=== PATIENT | male | born 1940 | race Caucasian/White ===

== ENCOUNTER 2017-05-30 15:14 | Inpatient (IN) | payer MEDICARE ==
[~2017-05-30] VITALS: Ht 188 cm; Wt 76.3 kg
[2017-05-30] VITALS (12 sets, daily range): BP systolic 98–128; BP diastolic 60–79
[~2017-05-30 15:14] MED LIST: AEROCHAMBER1 DEV IH; ALBUTEROL200 PUFFS/ IH; AZITHROMYCIN250 MG PO; CARVEDILOL6.25 MG PO; COREG3.125 MG PO; GABAPENTIN 600600 MG PO; GLIMEPIRIDE 2MG2 MG PO; KOMBIGLYZE XR 11 TER PO; LASIX40 MG PO; LISINOPRIL 10MG10 MG NG; METFORMIN 500M500 M1 PO; OMNICEF 300 MG300 MG PO; POTASSIUM CHLO10 ME3 PO; Zithromax500 MG PO
[2017-05-30] MEDS ORDERED: GLIMEPIRIDE1 MG PO (15:36)
[2017-05-30] MEDS ORDERED: ASPIRIN 81MG TA81 MG PO (15:37)
[2017-05-30 15:41] LABS: LYMPH # 1.6 K/mm3 (0.7-4.5); LYMPH % 15.3 % (10-50)
--- NOTE | 2017-05-30 15:41 | Emergency Room Report ---
History of Present Illness Time Seen by MD Colon Presenting Problem in Triage Pt arrived:Walked Presenting Problem:PT STATES HE IS HAVING RECTAL BLEEDING FOR 3 DAYS AND IT IS BLACK IN COLOR. 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 N Clinical Suspician of Infection? N Mental Status: 1 - Regular (Normal Baseline) Sepsis Risk:Low Sepsis Risk Have you (or family members/close friends) recently traveled outside the [place]? N If Yes, where/when: Have you had exposure to infectious disease within the past month? TB? Other? Specify: Comment The patient complains of black stool for 3 days. He says that about 4 or 5 days ago his 10 pound dog jumped off of the back of a chair onto his abdomen and he had some pain in his LEFT lower quadrant associated with that. He does not really have pain now. No vomiting of blood. No vomiting. No fever. No history of bowel problems or gastrointestinal bleeding. His only blood thinner is aspirin. He only drinks alcohol occasionally. ALLERGIES Coded Allergies: No Known Allergies (05/30/17) Home Medications Active Scripts Furosemide (Lasix) 40 MG PO DAILY #30 TAB Prov: 08/25/12 Reported Medications Glimepiride 1 MG PO DAILY #90 ASPIRIN (Aspirin) 81 MG PO DAILY Metformin HCl (Metformin) 500 MG PO BID Carvedilol (Carvedilol 6.25MG) 6.25 MG PO BID Gabapentin (Gabapentin 600MG) 600 MG PO BID History Medical History General CAD? No Angina: Yes OR: No Hypertension? Yes Hyperlipidemia? No CHF? No DVT? No PE? No COPD? No Asthma? No Anemia? No GERD? No Gastric ulcers? No GI Bleed? No Hernia? No Thyroid Problems? No Hypothyroidism? No CVA? No Seizures? No Diabetes? Yes Insulin Dependent: No Insulin Pump: No Home FSBS? No Renal Insuffiency? No End Stage Renal Disease? No UTI? No Stones? No BPH? No GB Disease: No Nephritic Syndrome? No Asplenia? No Hepatitis? No Sickle Cell Disease? No Arthritis? No Migraines? No Cataracts? No Glaucoma? No MRSA? No HIV? No TB? No Anxiety? No Depression? No Cancer? No More? No Immunization Hx DT/Tetanus 11/10/14 Flu 2015-FSN Pneumonia REFUSES Surgical Hx Previous Surgery?Y LEFT KNEE Family History Family Hx Diabetes Yes CAD No Hypertension No Hyperlipidemia No Cancer No TB No Social History Smoking Hx Smoker: Current Every Day Smoker Tobacco: No Type Cigarettes Alcohol Alcohol: Yes Review of Systems All Other Systems Reviewed and Negative Constitutional denies fever Respiratory denies shortness of breath Cardiovascular denies chest pain Gastrointestinal see HPI Physical Exam Vital Signs Vital Signs Date Time Temp Pulse Resp B/P Pulse O2 O2 Flow FiO2 Ox Delivery Rate 05/30 1528 98.1 95 18 128/79 98 General Appearance no apparent distress, mildly pale Eye Exam - bilateral eye normal exam, bilateral eye PERRL, bilateral eye EOMI Ear, Nose, Throat hearing grossly normal, normal ENT inspection Neck normal inspection, non-tender, supple, full range of motion Respiratory Status Yes: trachea midline, chest symmetrical, non tender chest. No: respiratory distress. Lung Sounds bilateral: normal breath sounds, lungs clear. Cardiovascular normal exam, regular rate/rhythm, no peripheral edema, no gallop, no JVD, no murmur, no rub, normal peripheral pulses Gastrointestinal normal bowel sounds, normal exam, non tender, soft, no organomegaly Extremities non-tender, normal range of motion, normal inspection Neurologic alert, normal exam, oriented x 3 Mental status normal mood/affect Skin intact, normal color, warm/dry Medical Decision Making LABS/Meds/Orders Pt receiving controlled substance in ED? No Results/Orders Laboratory Tests 05/30/17 1620: Stool Occult Blood POSITIVE 05/30/17 1525: Sodium 136, Potassium 5.1, Chloride 101, Carbon Dioxide 24, BUN 72 H, Creatinine 2.4 H, Estimated Creat Clear 30 L, Estimated GFR (MDRD) 27, Glucose 202 H, Calcium 8.6, Total Bilirubin 0.3, AST 13 L, ALT 16, Alkaline Phosphatase 63, Creatine Kinase 64, CK-MB (CK-2) Rel Index 2.0, CK and CKMB Interp 1.3, Troponin I 0.02, Total Protein 6.4, Albumin 3.6, Globulin 2.8, Albumin/Globulin Ratio 1.3, WBC 10.4, RBC 2.86 L, Hgb 9.3 L, Hct 27.6 L, MCV 96.3, RDW 12.5, Plt Count 208, MPV 10.3, Gran % 81.8 H, Gran # 8.5 H, Lymphocytes % 15.3, Monocytes % 2.3, Eosinophils % 0.3, Basophils % 0.1, Lymphocytes # 1.6, Monocytes # 0.2, Eosinophils # 0.0, Basophils # 0.0, PUBS MCHC 34.0, MCH 32.7 H Current Medication Orders Sig/Makeda Start time Last Medication Dose Route Stop Time Status Admin Pantoprazole Sodium 80 MG .Q10H 05/30 1758 AC Sodium Chloride 100 ML IV 06/02 175 Pantoprazole Sodium 80 MG ONCE ONE 05/30 1700 DC 05/30 Sodium Chloride 100 ML IV 05/30 175 1848 Sodium Chloride 10 ML PRN PRN 05/30 1545 AC IV 05/31 1534 Orders Procedure Date/time Status CT ABD/PELVIS REQ 05/30 1535 Complete IV SALINE LOCK 05/30 1535 Active STOOL OCCULT BLOOD 05/30 1535 Complete CBC WITH AUTO DIFF 05/30 1535 Complete CARDIAC ENZYMES 05/30 1535 Complete CHEM 12 PROFILE 05/30 1535 Complete Progress - 5:45 PM: I have discussed the case with Dr. Mehta for Dr. Zelaya who agrees to admit the patient to the hospital. We discussed the patient's clinical information, including history, exam, laboratory and radiology results and ED course. Per hospital procedure, I will write temporary bridge inpatient orders on the patient. Specific orders requested by the admitting physician: Protonix drip, surgical consult, serial H and H 4 hours overnight 5:50 PM: Discussed with Dr. Argueta. He may have clear liquids, nothing by mouth after midnight. Type and crossmatch for 2 units but do not transfuse at this time. Admit to stepdown. Departure Departure Disposition Still a Patient Clinical Impression Primary Impression: Upper gastrointestinal bleed Secondary Impressions: Blood loss anemia Condition STABLE Referrals Jacky Zelaya MD (Family) ED Critical Care Critical Care Yes Time spent 30-74 min Vital system(s) involved: UGI bleed, anemia I was present at bedside for Coordinating pt's care, During my initial exam, Reviewing lab results, Reviewing old records, Discussing pt condition at 2013
--- OUTSIDE RECORDS SUMMARY | 2017-05-30 15:41 | External Medical Summary Rpt ---
Author Author JAMSHID Trinidad, ROSIEPATO [employer] Organization [employer] Address Unknown Phone Unavailable Results Basic metabolic panel in Blood Observa Value Referen Units Interpr Notes Date tion ce etation Range Urea 7 - 18 mg/dL High No Sep 14 nitrogen informati 2017 [Mass/vol on in 11:11 AM ume] in source Serum or data Plasma Calcium 8.5 - mg/dL Normal No Sep 14 [Mass/vol 10.1 informati 2017 ume] in on in 11:11 AM Serum or source Plasma data Chloride 98 - 107 mmoL/L Normal No Sep 14 [Moles/vo informati 2017 lume] in on in 11:11 AM Serum or source Plasma data Carbon 21.0 - mmoL/L Normal No Sep 14 dioxide, 32.0 informati 2017 total on in 11:11 AM [Moles/vo source lume] in data Serum or Plasma Creatinin 0.70 - mg/dL High No Sep 14 e 1.30 informati 2017 [Mass/vol on in 11:11 AM ume] in source Serum or data Plasma Estimated >60 ML/MIN No REFERENCE Sep 14 informati RANGE: 2017 glomerula on in >60 11:11 AM r source ML/MIN/1. filtratio data 73 SQUARE n rate METERSIf (GF this patient is -A merican, then multiply theresult by 1.210. Glucose 74 - 106 mg/dL High No Sep 14 [Mass/vol informati 2017 ume] in on in 11:11 AM Serum or source Plasma data Potassium 3.5 - 5.1 mmoL/L High No Sep 14 informati 2017 [Moles/vo on in 11:11 AM lume] in source Serum or data Plasma Sodium 136 - 145 mmoL/L Normal No Sep 14 [Moles/vo informati 2017 lume] in on in 11:11 AM Serum or source Plasma data
--- OUTSIDE RECORDS SUMMARY | 2017-05-30 15:41 | External Medical Summary Rpt | CCD ---
Author Author [employer] Organization [employer] Address Unknown Phone Unavailable Purpose Continuity of Care Document - through 2016
--- OUTSIDE RECORDS SUMMARY | 2017-05-30 15:41 | External Medical Summary Rpt | CCD ---
Demographics Preferred Language Bahamian Marital Status Unknown Confucianism Affiliation Unknown Race Unknown Ethnic Group Unknown Author Author , FINESSE BREEN Address Unknown Phone Immunization No patient found.
--- OUTSIDE RECORDS SUMMARY | 2017-05-30 15:41 | External Medical Summary Rpt | CCD ---
Demographics Preferred Language Liberian Marital Status Unknown Tenriism Affiliation Unknown Race Unknown Ethnic Group Unknown Author Author , FINESSE BREEN Address Unknown Phone Immunization No patient found.
--- OUTSIDE RECORDS SUMMARY | 2017-05-30 15:41 | External Medical Summary Rpt | CCD ---
Author Author , JAMSHID BREEN Address Unknown Phone [email or web address] Care Team Providers Care Sales Special Agent Name Role Phone Jacky Zelaya, Jacky Unavailable Unavailable Nathalie PITTS, Unavailable Unavailable RITA PITTS Purpose Continuity of Care Document - 08-21-2012 through 2016 Problems Code Diagnosis DOS Provider Status 401.9 Essential [facility] [id number] Congestive [facility] [id number] Diabetes [facility] Pneumonia [facility] [id number] Active [facility] [id number] Chronic [facility] M54.5 LOW BACK PAIN T14.90 INJURY, UNSPECIFIED Allergies, Adverse Reactions, Alerts Type Allergy to substance Adverse Reaction to Substance Substance Reaction Severity INGREDIENT: NO KNOWN Unknown Unknown - NO KNOWN DRUG ALLERGY Medications Na ND Rx Da Fi Fi Am Da Di Ph RX Ph St me C No te ll ll ou ys ag ar # ys at rm s nt no ma ic us Or Da si cy ia de te s n re d AZ 59 02 0 No IT 76 -0 HR 23 2- Lo OM 06 20 ng YC 00 13 er IN 3 Ac 25 ti 0 ve MG TA BL ET FU 51 02 1 No RO 07 -0 SE 90 1- Lo NC 07 20 ng DE 32 13 er 0 40 Ac ti MG ve TA BL ET GE 00 01 2 No NT 40 -3 AM 91 1- Lo IC 20 20 ng IN 70 13 er 3 80 Ac ti MG ve /2 ML AL SO 00 01 2 No DI 40 -3 UM 97 1- Lo 98 20 ng CH 43 13 er LO 7 RI Ac DE ti ve 0. 9% SO ERICKSON TI ON CA 51 01 2 No RV 07 -3 ED 90 1- Lo IL 77 20 ng OL 12 13 er 0 3. Ac 12 ti 5 ve MG TA BL ET FU 00 01 0 No RO 40 -3 SE 96 1- Lo NC 10 20 ng DE 20 13 er 4 40 Ac ti MG ve /4 ML AL RI 00 01 2 No OM 64 -3 ET 11 1- Lo MEHTA 49 20 ng ZI 53 13 er NE 5 Ac 25 ti ve MG /M L AM PU L As 00 01 2 No pi 18 -3 ri 28 1- Lo n 21 20 ng 81 78 13 er MG 9 Ac EC ti ve Ta bl et Fu 00 01 0 No ro 17 -3 se 22 1- Lo mi 90 20 ng de 81 13 er 0 20 Ac MG ti ve Ta bl et XO 63 01 3 No PE 40 -3 NE 20 0- Lo X 51 20 ng 1. 32 13 er 25 4 Ac MG ti /3 ve ML SO ERICKSON TI ON ME 00 01 0 No TO 40 -3 RI 92 0- Lo OL 28 20 ng OL 50 13 er 5 TA Ac RT ti 5 ve MG /5 ML AM P GL 51 01 3 No IM 07 -3 EP 90 0- Lo IR 42 20 ng ID 52 13 er E 0 2 Ac MG ti ve TA BL ET LO 00 01 3 No VE 07 -3 NO 50 0- Lo X 62 20 ng 40 04 13 er 1 MG Ac /0 ti .4 ve ML SY RI NG E IS 00 01 0 No OV 27 -3 UE 01 0- Lo -3 31 20 ng 70 65 13 er 2 76 Ac % ti IN ve FU S KAR[place] TT LE RA 63 01 0 No D- 80 -3 SA 70 0- Lo LI 10 20 ng NE 07 13 er 5A FL Ac US ti H ve 10 ML SY RI NG E SO 00 01 0 No DI 40 -3 UM 94 0- Lo 88 20 ng CH 82 13 er LO 0 RI Ac DE ti ve 0. 9% AL CE 00 01 0 No FT 40 -3 RI 97 0- Lo AX 33 20 ng ON 30 13 er E 4 1 Ac GM ti ve AL So 00 01 0 No d 07 -3 Ch 47 0- Lo lo 10 20 ng ri 11 13 er de 3 Ac 0. ti 9% ve 50 ML Ad v CE 60 01 3 No FE 50 -3 PI 50 0- Lo ME 83 20 ng 40 13 er HC 4 L Ac 1 ti GM ve AL Sa 63 01 1 No li 80 -2 ne 70 9- Lo 10 20 ng Fl 07 13 er us 5 h Ac 10 ti ML ve Sy ri ng e Li 00 01 4 No si 17 -2 no 23 9- Lo pr 75 20 ng il 91 13 er 0 10 Ac MG ti ve Ta bl et FS 01 4 No -2 BL 9- Lo OO 20 ng D 13 er DUNN GA Ac R ti ve HU 00 01 4 No MA 00 -2 LO 27 9- Lo G 51 20 ng 10 01 13 er 0 7 UN Ac IT ti S/ ve ML AL ZO 51 01 4 No LP 07 -2 ID 90 9- Lo EM 72 20 ng 52 13 er TA 0 RT Ac RA ti TE ve 10 MG TA BL ET LO 00 01 0 No RA 64 -2 ZE 16 9- Lo PA 04 20 ng M 82 13 er 2 5 MG Ac /M ti L ve AL CE 00 01 0 No FT 40 -2 RI 97 9- Lo AX 33 20 ng ON 30 13 er E 4 1 Ac GM ti ve AL So 00 01 0 No d 07 -2 Ch 47 9- Lo lo 10 20 ng ri 11 13 er de 3 Ac 0. ti 9% ve 50 ML Ad v AZ 00 01 3 No IT 40 -2 HR 90 9- Lo OM 14 20 ng YC 41 13 er IN 1 Ac I. ti V. ve 50 0 MG AL SO 00 01 3 No DI 40 -2 UM 97 9- Lo 10 20 ng CH 10 13 er LO 2 RI Ac DE ti ve 0. 9% SO LN Vital Signs 08-25-2012 11:00 Name Value Interpretat Reference Comment ion Range Body 97.9 [degF] Temperature BP 82 mm[Hg] Diastolic BP Systolic 128 mm[Hg] Heart 96 /min Rate/Pulse Respiratory 20 /min Rate 08-25-2012 08:00 Name Value Interpretat Reference Comment ion Range O2% 96 % 08-21-2012 21:30 Name Value Interpretat Reference Comment ion Range Height 187.96 cm Weight 81.648 kg Measured 08-21-2012 18:19 Name Value Interpretat Reference Comment ion Range Body 98.6 [degF] Temperature BP 86 mm[Hg] Diastolic BP Systolic 145 mm[Hg] Heart 120 /min Rate/Pulse O2% 84 % Respiratory 24 /min Rate Weight 0 [oz_av] Measured Results Labs Lab Lab Date Result Refere Interp Status Commen Order Detail nces retati t Range on Glucose BldC Glucomtr-[facility] (08-25-2012 07:08) Glucose 217 70-110 complet BldC 013 mg/dl ed Glucomt 07:08 r-mCnc Glucose BldC Glucomtr-mCnc (08-24-2012 20:36) Glucose 93 70-110 complet BldC 013 mg/dl ed Glucomt 20:36 r-mCnc Glucose BldC Glucomtr-mCnc (08-24-2012 16:45) Glucose 286 70-110 complet BldC 013 mg/dl ed Glucomt 16:45 r-mCnc Glucose BldC Glucomtr-mCnc (08-24-2012 11:39) Glucose 128 70-110 complet BldC 013 mg/dl ed Glucomt 11:39 r-mCnc Glucose BldC Glucomtr-mCnc (08-24-2012 06:50) Glucose 222 70-110 complet BldC 013 mg/dl ed Glucomt 06:50 r-nc BASIC METABOLIC PANEL (08-24-2012 06:30) Glucose 185 74-106 complet 013 mg/dL ed Bld-mCn 06:30 c BUN 18 7-18 complet Bld-mCn 013 mg/dL ed c 06:30 Creat 1.5 0.8-1.3 complet SerPl-m 013 mg/dL ed Cnc 06:30 ESTIMAT 53 50-200 complet ED 013 ML/MIN ed CREATIN 06:30 INE CLEARAN CE GFR 46 Greater complet (ESTIMA 013 ML/MIN than ed GILBERT) 06:30 60 Sodium 137 136-145 complet SerPl-s 013 mmoL/L ed Cnc 06:30 Potassi 4.4 3.5-5.1 complet um 013 mmoL/L ed SerPl-s 06:30 Cnc Chlorid 99 98-107 complet e 013 mmoL/L ed SerPl-s 06:30 Cnc CO2 28 21.0-32 complet SerPl-s 013 mmoL/L .0 ed Cnc 06:30 Calcium 8.7 8.5-10. complet 013 mg/dL 1 ed SerPl-m 06:30 Cnc Magnesium SerPl-mCnc (08-24-2012 06:30) Magnesi 02-01-2 1.8 1.4-2.2 complet um 013 mg/dL ed SerPl-m 06:30 Cnc BNP Bld-mCnc (08-24-2012 06:30) BNP 02-01-2 543 0-100 complet Bld-mCn 013 pg/mL ed c 06:30 CBC with AUTO DIFF (08-24-2012 06:30) WBC # 02-01-2 7.4 4.8-10. complet Bld 013 K/MM3 8 ed Auto 06:30 RBC # 02-01-2 4.38 4.6-6.2 complet Bld 013 M/mm3 ed Auto 06:30 Hgb 02--2 13.1 14.1-18 complet Bld-mCn 013 g/dL .0 ed c 06:30 Hct Fr 08-24-2 40.9 % 42.0-52 complet Bld 013 .0 ed 06:30 MCV RBC 08-24-2 93.4 fl 82.2-97 complet 013 .8 ed 06:30 MCH RBC 08-24-2 29.9 pg 27-31.2 complet Qn 013 ed Auto 06:30 MEAN 08-24-2 32.0 31.8-35 complet CORPUSC 013 g/dl .4 ed ULAR 06:30 HGB CONC RDW RBC 08-24-2 13.0 % 11.5-17 complet Auto 013 .5 ed 06:30 Platele 08-24-2 170 142-424 complet t Bld 013 K/mm3 ed Ql 06:30 Manual Granulo 08-24-2 75.0 % 37.0-80 complet cytes 013 .0 ed Fr Bld 06:30 Auto LYMPH % --2 21.3 % 10-50 complet 013 ed 06:30 Monocyt 02--2 3.7 % 1.7-9.3 complet es Fr 013 ed Bld 06:30 Auto Granulo 02-01-2 5.5 1.3-8.0 complet cytes # 013 K/mm3 ed Bld 06:30 Auto Lymphoc --2 1.6 0.7-4.5 complet ytes Fr 013 K/mm3 ed Bld 06:30 Auto Monocyt 0201-2 0.3 0.1-1.0 complet es # 013 K/mm3 ed Bld 06:30 Auto Glucose BldC Glucomtr-[facility] (08-23-2012 22:13) Glucose 192 70-110 complet BldC 013 mg/dl ed Glucomt 22:13 r-nc Gentamicin SerPl-sCnc (08-23-2012 22:10) Gentami 5.2 4.0-10. complet ramon 013 ug/ml 0 ed SerPl-s 22:10 [facility] Glucose BldC Glucomtr-mCnc (08-23-2012 17:09) Glucose 143 70-110 complet BldC 013 mg/dl ed Glucomt 17:09 r-[facility] Glucose BldC Glucomtr-[facility] (08-23-2012 11:55) Glucose 155 70-110 complet BldC 013 mg/dl ed Glucomt 11:55 r-[facility] Glucose BldC Glucomtr-[facility] (08-23-2012 06:41) Glucose 187 70-110 complet BldC 013 mg/dl ed Glucomt 06:41 r-[facility] BASIC METABOLIC PANEL (08-23-2012 06:33) Glucose 189 74-106 complet 013 mg/dL ed Bld-mCn 06:33 c BUN 15 7-18 complet Bld-mCn 013 mg/dL ed c 06:33 Creat 1.3 0.8-1.3 complet SerPl-m 013 mg/dL ed Cnc 06:33 ESTIMAT 61 50-200 complet ED 013 ML/MIN ed CREATIN 06:33 INE CLEARAN CE GFR 55 Greater complet (ESTIMA 013 ML/MIN than ed GILBERT) 06:33 60 Sodium 137 136-145 complet SerPl-s 013 mmoL/L ed Cnc 06:33 Potassi 4.5 3.5-5.1 complet um 013 mmoL/L ed SerPl-s 06:33 Cnc Chlorid 98 98-107 complet e 013 mmoL/L ed SerPl-s 06:33 Cnc CO2 28 21.0-32 complet SerPl-s 013 mmoL/L .0 ed Cnc 06:33 Calcium 8.6 8.5-10. complet 013 mg/dL 1 ed SerPl-m 06:33 Cnc THYROID STIM HORMONE (08-23-2012 06:33) THYROID 08-23-2 3.74 0.358-3 complet STIM 013 uIU/ml .740 ed HORMONE 06:33 CBC with AUTO DIFF (08-23-2012 06:33) WBC # 08-23-2 8.6 4.8-10. complet Bld 013 K/MM3 8 ed Auto 06:33 RBC # 08-23-2 4.39 4.6-6.2 complet Bld 013 M/mm3 ed Auto 06:33 Hgb 14.0 14.1-18 complet Bld-mCn 013 g/dL .0 ed c 06:33 Hct Fr 41.5 % 42.0-52 complet Bld 013 .0 ed 06:33 MCV RBC 94.7 fl 82.2-97 complet 013 .8 ed 06:33 MCH RBC 32.0 pg 27-31.2 complet Qn 013 ed Auto 06:33 MEAN 33.8 31.8-35 complet CORPUSC 013 g/dl .4 ed ULAR 06:33 HGB CONC RDW RBC 12.5 % 11.5-17 complet Auto 013 .5 ed 06:33 Platele 161 142-424 complet t Bld 013 K/mm3 ed Ql 06:33 Manual MEAN 9.3 fl 7.4-10. complet PLATELE 013 4 ed T 06:33 VOLUME Granulo 76.7 % 37.0-80 complet cytes 013 .0 ed Fr Bld 06:33 Auto LYMPH % 17.2 % 10-50 complet 013 ed 06:33 Monocyt 5.3 % 1.7-9.3 complet es Fr 013 ed Bld 06:33 Auto Eosinop 2 0.5 % 0.1-12. complet hil Fr 013 0 ed Bld 06:33 Auto Basophi 2 0.3 % 0.1-2.0 complet ls Fr 013 ed Bld 06:33 Auto Granulo 08-23-2 6.6 1.3-8.0 complet cytes # 013 K/mm3 ed Bld 06:33 Auto Lymphoc 08-23-2 1.5 0.7-4.5 complet ytes Fr 013 K/mm3 ed Bld 06:33 Auto Monocyt 08-23-2 0.5 0.1-1.0 complet es # 013 K/mm3 ed Bld 06:33 Auto Eosinop 08-23-2 0.0 0.0-0.4 complet hil # 013 K/mm3 ed Bld 06:33 Auto Basophi 08-23-2 0.0 0-0.2 complet ls # 013 K/MM3 ed Bld 06:33 Auto Glucose BldC Glucomtr-[facility] (08-22-2012 22:06) Glucose 191 70-110 complet BldC 013 mg/dl ed Glucomt 22:06 r-nc Glucose BldC Glucomtr-[facility] (08-22-2012 16:26) Glucose 228 70-110 complet BldC 013 mg/dl ed Glucomt 16:26 r-[facility] Glucose BldC Glucomtr-[facility] (08-22-2012 11:51) Glucose 167 70-110 complet BldC 013 mg/dl ed Glucomt 11:51 r-[facility] Glucose BldC Glucomtr-nc (08-22-2012 06:29) Glucose 224 70-110 complet BldC 013 mg/dl ed Glucomt 06:29 r-nc BNP Bld-mCnc (08-22-2012 06:27) BNP 679 0-100 complet Bld-mCn 013 pg/mL ed c 06:27 D Dimer PPP (08-22-2012 06:27) D Dimer 359 0-400 complet PPP 013 ng/mL ed 06:27 Glucose BldC Glucomtr-nc (08-21-2012 23:21) Glucose 198 70-110 complet BldC 013 mg/dl ed Glucomt 23:21 r-[facility] COMPREHENSIVE METABOLIC PANEL (08-21-2012 18:30) Glucose 01-29-2 181 74-106 complet 013 mg/dL ed Bld-mCn 18:30 c BUN 13 7-18 complet Bld-mCn 013 mg/dL ed c 18:30 Creat 1.3 0.8-1.3 complet SerPl-m 013 mg/dL ed Cnc 18:30 ESTIMAT 61 50-200 complet ED 013 ML/MIN ed CREATIN 18:30 INE CLEARAN CE GFR 55 Greater complet (ESTIMA 013 ML/MIN than ed GILBERT) 18:30 60 Sodium 139 136-145 complet SerPl-s 013 mmoL/L ed Cnc 18:30 Potassi 3.8 3.5-5.1 complet um 013 mmoL/L ed SerPl-s 18:30 Cnc Chlorid 102 98-107 complet e 013 mmoL/L ed SerPl-s 18:30 Cnc CO2 26 21.0-32 complet SerPl-s 013 mmoL/L .0 ed Cnc 18:30 Calcium 8.5 8.5-10. complet 013 mg/dL 1 ed SerPl-m 18:30 Cnc Prot 6.8 6.4-8.2 complet SerPl-m 013 gm/dL ed Cnc 18:30 Albumin 3.7 3.4-5.0 complet 013 gm/dL ed SerPl-m 18:30 Cnc Globuli 3.1 1.3-3.2 complet n 013 gm/dL ed Ser-mCn 18:30 c Albumin 1.2 UNK 1.1-1.8 complet /Glob 013 ed SerPl-m 18:30 Rto Bilirub 0.5 0.2-1.0 complet 013 mg/dL ed SerPl-m 18:30 Cnc AST 23 U/L 15-37 complet SerPl-c 013 ed Cnc 18:30 ALT 37 U/L 30-65 complet SerPl-c 013 ed Cnc 18:30 ALP 108 U/L 50-136 complet SerPl-c 013 ed Cnc 18:30 CBC with AUTO DIFF (08-21-2012 18:30) WBC # 08-21-2 8.0 4.8-10. complet Bld 013 K/MM3 8 ed Auto 18:30 RBC # 08-21-2 4.41 4.6-6.2 complet Bld 013 M/mm3 ed Auto 18:30 Hgb 14.3 14.1-18 complet Bld-mCn 013 g/dL .0 ed c 18:30 Hct Fr 41.5 % 42.0-52 complet Bld 013 .0 ed 18:30 MCV RBC 94.1 fl 82.2-97 complet 013 .8 ed 18:30 MCH RBC 32.5 pg 27-31.2 complet Qn 013 ed Auto 18:30 MEAN 34.5 31.8-35 complet CORPUSC 013 g/dl .4 ed ULAR 18:30 HGB CONC RDW RBC 12.7 % 11.5-17 complet Auto 013 .5 ed 18:30 Platele 191 142-424 complet t Bld 013 K/mm3 ed Ql 18:30 Manual MEAN 8.9 fl 7.4-10. complet PLATELE 013 4 ed T 18:30 VOLUME Granulo 65.3 % 37.0-80 complet cytes 013 .0 ed Fr Bld 18:30 Auto LYMPH % 08-21- 28.6 % 10-50 complet 013 ed 18:30 Monocyt 4.2 % 1.7-9.3 complet es Fr 013 ed Bld 18:30 Auto Eosinop 08-21-2 1.7 % 0.1-12. complet hil Fr 013 0 ed Bld 18:30 Auto Basophi 08-21-2 0.2 % 0.1-2.0 complet ls Fr 013 ed Bld 18:30 Auto Granulo 08-21-2 5.2 1.3-8.0 complet cytes # 013 K/mm3 ed Bld 18:30 Auto Lymphoc 08-21-2 2.3 0.7-4.5 complet ytes Fr 013 K/mm3 ed Bld 18:30 Auto Monocyt 08-21-2 0.3 0.1-1.0 complet es # 013 K/mm3 ed Bld 18:30 Auto Eosinop 0.1 0.0-0.4 complet hil # 013 K/mm3 ed Bld 18:30 Auto Basophi 0.0 0-0.2 complet ls # 013 K/MM3 ed Bld 18:30 Auto MYCOPLASMA IGM (RAPID) (08-21-2012 18:30) MYCOPLA NON-RENNY NONREAC complet SMA IGM 013 CTIVE TIVE ed 18:30 (RAPID) Encounters Encounter Start End Date Code Location Performer Type Date Inpatient IMP Adrian Nathalie ([place]) 3 18:44 3 11:00 [facility]
--- OUTSIDE RECORDS SUMMARY | 2017-05-30 15:41 | External Medical Summary Rpt | CCD ---
Author Author , JAMSHID BREEN Address Unknown Phone [email or web address] Care Team Providers Care Core Feeder Name Role Phone Jacky Zelaya, Jacky Unavailable Unavailable Nathalie PITTS, Unavailable Unavailable RITA PITTS Purpose Continuity of Care Document - 08-21-2012 through 2016 Problems Code Diagnosis DOS Provider Status 401.9 Essential [facility] [id number] Congestive [facility] [id number] Diabetes [facility] 2 [facility] 486 Pneumonia [facility] [id number] Active [facility] [id number] Chronic [facility] M54.5 LOW BACK PAIN T14.90 INJURY, UNSPECIFIED [...] RO 07 -0 SE 90 1- Lo [place] 07 20 ng DE 32 13 er [...] RO 40 -3 SE 96 1- Lo [place] 10 20 ng DE 20 13 er 4 40 Ac ti MG ve /4 ML AL NM 00 01 2 No OM 64 -3 [...] 00 01 0 No TO 40 -3 NM 92 0- Lo OL 28 20 ng [...] nces retati t Range on Glucose BldC Glucomtr-[facility] (08-25-2012 07:08) Glucose 217 70-110 complet [...] K/mm3 ed Bld 06:30 Auto Glucose BldC [facility] (08-23-2012 22:13) Glucose 192 70-110 complet BldC 013 mg/dl ed Glucomt 22:13 r-nc Gentamicin SerPl-sCnc (08-23-2012 22:10) Gentami 5.2 4.0-10. complet ramon 013 ug/ml 0 ed SerPl-s 22:10 [facility] Glucose BldC Glucomtr-mCnc (08-23-2012 17:09) Glucose 143 70-110 complet BldC 013 mg/dl ed Glucomt 17:09 r-[facility] Glucose BldC [facility] (08-23-2012 11:55) Glucose 155 70-110 complet BldC 013 mg/dl ed Glucomt 11:55 r-[facility] Glucose BldC [facility] (08-23-2012 06:41) Glucose 187 70-110 complet BldC 013 mg/dl ed Glucomt 06:41 r-[facility] BASIC METABOLIC PANEL (08-23-2012 06:33) Glucose [...] K/MM3 ed Bld 06:33 Auto Glucose BldC [facility] (08-22-2012 22:06) Glucose 191 70-110 complet BldC 013 mg/dl ed Glucomt 22:06 r-nc Glucose BldC [facility] (08-22-2012 16:26) Glucose 228 70-110 complet BldC 013 mg/dl ed Glucomt 16:26 r-[facility] Glucose BldC [facility] (08-22-2012 11:51) Glucose 167 70-110 complet BldC 013 mg/dl ed Glucomt 11:51 r-[facility] Glucose BldC Glucomtr-nc (08-22-2012 06:29) Glucose 224 70-110 complet BldC 013 mg/dl ed Glucomt 06:29 r-nc BNP Bld-mCnc (08-22-2012 06:27) BNP 679 0-100 complet Bld-mCn 013 pg/mL ed c 06:27 D Dimer PPP (08-22-2012 06:27) D Dimer 359 0-400 complet PPP 013 ng/mL ed 06:27 Glucose BldC Glucomtr-nc (08-21-2012 23:21) Glucose 198 70-110 complet BldC 013 mg/dl ed Glucomt 23:21 r-[facility] COMPREHENSIVE METABOLIC PANEL (08-21-2012 18:30) Glucose [...] Adrian Nathalie ([place]) 3 18:44 3 11:00 [facility]
[2017-05-30 15:46] LABS: HEMOGLOBIN 9.3 g/dL (14.1-18.0)
[2017-05-30 16:34] LABS: STOOL OCCULT BLOOD POSITIVE (NEG)
--- NOTE | 2017-05-30 17:25 | RADIOLOGY REPORT PS360 ---
CT ABD PELVIS W/O CONTRAST CLINICAL INDICATION: ABD PAIN WITH RECTAL BLEEDING ORDERING PHYSICIAN: Porfirio Givens MD PATIENT AGE: 76 years COMPARISON: None TECHNIQUE: Axial images obtained with sagittal and coronal reformats. PROCEDURE: Oral Contrast: None IV Contrast: None . FINDINGS: Lung base images show bronchial thickening. Fibrotic changes are present in the lung bases with hyperinflation system is COPD. There is a calcified granuloma in the right middle lobe laterally. Coronary artery calcifications are present The liver, spleen, adrenal glands, and pancreas have an unremarkable unenhanced CT appearance. No renal calculi or hydronephrosis. No intestinal obstruction or free air. No evidence of appendicitis or diverticulitis. Diverticulosis doesn't involve the descending and sigmoid colon. There is minimal dilatation of the mid abdominal aorta at 2.5 cm. No acute bony anomalies. IMPRESSION: 1. No acute intra-abdominal or pelvic pathology. 2. Colonic diverticulosis. No evidence of diverticulitis. 3. COPD, coronary artery disease
--- OUTSIDE RECORDS SUMMARY | 2017-05-30 17:52 | External Medical Summary Rpt | CCD ---
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] RO 40 -3 SE 96 1- Lo [place] 10 20 ng DE 20 13 er 4 40 Ac ti MG ve /4 ML AL [place] 00 01 2 No OM 64 -3 [...] 00 01 0 No TO 40 -3 WA 92 0- Lo OL 28 20 ng [...] Order Detail nces retati t Range on Fecal occult blood test (05-30-2017 16:20) Stool POSITIV NEG complet occult 017 E ed blood 16:20 POSITIV test on E L first specime Hemoglobin.gastrointestinal [Presence] in Stool (05-30-2017 16:20) Hemoglo POSITIV NEG complet bin.gas 017 E ed trointe 16:20 stinal [Presen ce] in Stool --1st specime n Cardiac enzymes (05-30-2017 15:25) Serum = 2.0 0-4.0 complet or 017 U/L ed plasma 15:25 creatin e kinase MB (CK-M Serum = 1.3 0.0-3.6 complet or 017 ng/mL ed plasma 15:25 creatin e kinase MB measu Serum = 64 39-308 complet or 017 U/L ed plasma 15:25 creatin e kinase measure m Serum = 0.02 0.00-0. complet or 017 ng/mL 06 ed plasma 15:25 troponi n i.cardi ac measu Comprehensive metabolic panel (05-30-2017 15:25) Serum = 1.3 1.1-1.8 complet or 017 ed plasma 15:25 albumin /globul in mass ra Serum = 3.6 3.4-5.0 complet or 017 gm/dL ed plasma 15:25 albumin measure ment (mas Serum = 63 46-116 complet or 017 U/L ed plasma 15:25 alkalin e phospha tase shlomo Serum = 0.3 0.2-1.0 complet or 017 mg/dL ed plasma 15:25 total bilirub in measure m Serum = 72 7-18 complet or 017 mg/dL ed plasma 15:25 urea nitroge n measure men Serum = 8.6 8.5-10. complet or 017 mg/dL 1 ed plasma 15:25 calcium measure ment (mas Serum = 101 98-107 complet or 017 mmoL/L ed plasma 15:25 chlorid e measure ment (mo Carbon = 24 21.0-32 complet dioxide 017 mmoL/L .0 ed 15:25 measure ment Serum = 2.4 0.70-1. complet or 017 mg/dL 30 ed plasma 15:25 creatin ine measure ment ( Estimat = 30 50-200 complet ion of 017 ML/MIN ed creatin 15:25 ine renal clearan ce Estimat = 27 >60 complet ed 017 ML/MIN ed glomeru 15:25 lar filtrat ion rate (GF Comment: REFERENCE RANGE: >60 ML/MIN/1.73 SQUARE METERS Comment: If this patient is -Senegalese, then multiply the Comment: result by 1.210. Serum = 2.8 1.3-3.2 complet globuli 017 gm/dL ed n 15:25 measure ment (mass/v olume) Serum = 202 74-106 complet or 017 mg/dL ed plasma 15:25 glucose measure ment (mas Serum = 5.1 3.5-5.1 complet potassi 017 mmoL/L ed um 15:25 measure ment Serum = 136 136-145 complet sodium 017 mmoL/L ed measure 15:25 ment Serum = 13 15-37 complet or 017 U/L ed plasma 15:25 asparta te aminotr ansfera ALT = 16 12-78 complet (SGPT) 017 U/L ed ser/phill 15:25 s Protein = 6.4 6.4-8.2 complet total 017 gm/dL ed ser/phill 15:25 s CBC w auto diff (05-30-2017 15:25) Blood = 10.4 4.8-10. complet leukocy 017 K/MM3 8 ed mohini 15:25 count (number /volume ) Automat = 12.5 11.5-17 complet ed 017 % .5 ed erythro 15:25 cyte distrib ution width Red = 2.86 4.6-6.2 complet blood 017 M/mm3 ed cell 15:25 count Blood = 208 142-424 complet platele 017 K/mm3 ed t count 15:25 Automat = 10.3 7.4-10. complet ed 017 fl 4 ed blood 15:25 platele t mean volume shlomo [place] % = 2.3 % 1.7-9.3 complet 017 ed 15:25 Automat = 96.3 82.2-97 complet ed 017 fl .8 ed erythro 15:25 cyte mean corpusc ular v Lymphoc = 15.3 10-50 complet yte 017 % ed count, 15:25 blood, automat ed Absolut = 1.6 0.7-4.5 complet e 017 K/mm3 ed lymphoc 15:25 yte count Blood = 9.3 14.1-18 complet hemoglo 017 g/dL .0 ed bin 15:25 measure ment (mass/v olum Blood = 8.5 1.3-8.0 complet granulo 017 K/mm3 ed cytes 15:25 automat ed count (numb Automat = 0.3 % 0.1-12. complet ed 017 0 ed blood 15:25 eosinop hils/10 0 leukocy t Absolut = 0.2 0.1-1.0 complet e 017 K/mm3 ed monocyt 15:25 e count Automat = 0.0 0.0-0.4 complet ed 017 K/mm3 ed blood 15:25 eosinop hil count Baso % = 0.1 % 0.1-2.0 complet 017 ed 15:25 Automat = 0.0 0-0.2 complet ed 017 K/MM3 ed blood 15:25 basophi l count (count/ vo Automat = 34.0 31.8-35 complet ed 017 g/dl .4 ed erythro 15:25 cyte mean corpusc ular h Mean = 32.7 27-31.2 complet corpusc 017 pg ed ular 15:25 hemoglo bin (MCH) determ Blood = 27.6 42.0-52 complet hematoc 017 % .0 ed rit 15:25 (volume fractio n) Granulo = 81.8 37.0-80 complet cyte 017 % .0 ed percent 15:25 age Glucose [facility] (08-25-2012 07:08) Glucose 217 70-110 complet BldC [...] 06:30 Cnc BNP Bld-mCnc (08-24-2012 06:30) BNP 02--2 543 0-100 complet Bld-mCn 013 pg/mL ed c 06:30 CBC with AUTO DIFF (08-24-2012 06:30) WBC # 02-01-2 7.4 4.8-10. complet Bld 013 K/MM3 8 ed Auto 06:30 RBC # 02-01-2 4.38 4.6-6.2 complet Bld 013 M/mm3 ed Auto 06:30 Hgb 02-2 13.1 14.1-18 complet Bld-mCn 013 g/dL .0 [...] % 10-50 complet 013 ed 06:30 Monocyt 02-2 3.7 % 1.7-9.3 complet es Fr 013 ed Bld 06:30 Auto Granulo 02-01-2 5.5 1.3-8.0 complet cytes # 013 K/mm3 ed Bld 06:30 Auto Lymphoc --2 1.6 0.7-4.5 complet ytes Fr 013 K/mm3 ed Bld 06:30 Auto Monocyt 02-01-2 0.3 0.1-1.0 complet es # 013 K/mm3 ed Bld 06:30 Auto Glucose BldC Glucomtr-mCnc (08-23-2012 22:13) Glucose 192 70-110 complet BldC 013 mg/dl ed Glucomt 22:13 r-nc Gentamicin SerPl-sCnc (08-23-2012 22:10) Gentami 5.2 4.0-10. complet ramon 013 ug/ml 0 ed SerPl-s 22:10 Cnc Glucose BldC Glucomtr-mCnc (08-23-2012 17:09) Glucose 143 70-110 complet BldC 013 mg/dl ed Glucomt 17:09 r-[facility] Glucose BldC [facility]tr[facility] (08-23-2012 11:55) Glucose 155 70-110 complet BldC 013 mg/dl ed Glucomt 11:55 r-[facility] Glucose BldC Glucomtr-nc (08-23-2012 06:41) Glucose 187 70-110 complet BldC 013 mg/dl ed Glucomt 06:41 r-[facility] BASIC METABOLIC PANEL (08-23-2012 06:33) Glucose 189 [...] 013 mmoL/L .0 ed Cnc 06:33 Calcium 2 8.6 8.5-10. complet 013 mg/dL 1 ed [...] K/MM3 ed Bld 06:33 Auto Glucose BldC Glucomtr[facility] (08-22-2012 22:06) Glucose 191 70-110 complet BldC 013 mg/dl ed Glucomt 22:06 r-nc Glucose BldC Glucomtr-[facility] (08-22-2012 16:26) Glucose 228 70-110 complet BldC 013 mg/dl ed Glucomt 16:26 r-[facility] Glucose BldC Glucomtr[facility] (08-22-2012 11:51) Glucose 167 70-110 complet BldC 013 mg/dl ed Glucomt 11:51 r-nc Glucose BldC Glucomtr-[facility] (08-22-2012 06:29) Glucose 224 70-110 complet BldC 013 mg/dl ed Glucomt 06:29 r-mCnc BNP Bld-mCnc (08-22-2012 06:27) BNP 679 0-100 complet Bld-mCn 013 pg/mL ed c 06:27 D Dimer PPP (08-22-2012 06:27) D Dimer 359 0-400 complet PPP 013 ng/mL ed 06:27 Glucose BldC Glucomtr-nc (08-21-2012 23:21) Glucose 198 70-110 complet BldC 013 mg/dl ed Glucomt 23:21 r-[facility] COMPREHENSIVE METABOLIC PANEL (08-21-2012 18:30) Glucose 181 74-106 complet 013 mg/dL ed Bld-mCn [...] ed Fr Bld 18:30 Auto LYMPH % 28.6 % 10-50 complet 013 ed 18:30 [...] Location Performer Type Date Inpatient IMP Adrian Zelaya ([place]) 3 18:44 [facility]
--- OUTSIDE RECORDS SUMMARY | 2017-05-30 17:52 | External Medical Summary Rpt | CCD ---
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 Name Role Phone Jacky Zelaya, Jacky Unavailable Unavailable Nathalie PITTS, Unavailable Unavailable RITA PITTS Purpose Continuity of Care Document - 08-21-2012 through 2016 Problems Code Diagnosis DOS Provider Status 401.9 Essential [facility] [id number] Congestive [facility] [id number] Diabetes [facility] 2 [facility] 486 Pneumonia [facility] [id number] Active [facility] [id number] Chronic [facility] M54.5 LOW BACK PAIN T14.90 INJURY, UNSPECIFIED [...] RO 07 -0 SE 90 1- Lo [place] 07 20 ng DE 32 13 er [...] RO 40 -3 SE 96 1- Lo [place] 10 20 ng DE 20 13 er 4 40 Ac ti MG ve /4 ML AL [place] 00 01 2 No OM 64 -3 [...] 00 01 0 No TO 40 -3 MA 92 0- Lo OL 28 20 ng [...] SQUARE METERS Comment: If this patient is -Japanese, then multiply the Comment: result by 1.210. [...] blood 15:25 platele t mean volume shlomo [place] % = 2.3 % 1.7-9.3 complet 017 [...] % .0 ed percent 15:25 age Glucose [facility] (08-25-2012 07:08) Glucose 217 70-110 [...] complet BldC 013 mg/dl ed Glucomt 17:09 r-[facility] Glucose BldC [facility] (08-23-2012 11:55) Glucose 155 70-110 complet BldC 013 mg/dl ed Glucomt 11:55 r-[facility] Glucose BldC Glucomtr-nc (08-23-2012 06:41) Glucose 187 70-110 complet BldC 013 mg/dl ed Glucomt 06:41 r-[facility] BASIC METABOLIC PANEL (08-23-2012 06:33) [...] K/MM3 ed Bld 06:33 Auto Glucose BldC [facility] (08-22-2012 22:06) Glucose 191 70-110 complet BldC 013 mg/dl ed Glucomt 22:06 r-nc Glucose BldC [facility] (08-22-2012 16:26) Glucose 228 70-110 complet BldC 013 mg/dl ed Glucomt 16:26 r-[facility] Glucose BldC [facility] (08-22-2012 11:51) Glucose 167 70-110 complet BldC 013 mg/dl ed Glucomt 11:51 r-nc Glucose BldC [facility]tr[facility] (08-22-2012 06:29) Glucose 224 70-110 complet BldC 013 mg/dl ed Glucomt 06:29 r-mCnc BNP Bld-mCnc (08-22-2012 06:27) BNP 679 0-100 complet Bld-mCn 013 pg/mL ed c 06:27 D Dimer PPP (08-22-2012 06:27) D Dimer 359 0-400 complet PPP 013 ng/mL ed 06:27 Glucose BldC Glucomtr-nc (08-21-2012 23:21) Glucose 198 70-110 complet BldC 013 mg/dl ed Glucomt 23:21 r-[facility] COMPREHENSIVE METABOLIC PANEL (08-21-2012 18:30) [...] Adrian Zelaya ([place]) 3 18:44 3 11:00 [facility]
--- OUTSIDE RECORDS SUMMARY | 2017-05-30 17:53 | External Medical Summary Rpt | CCD ---
Demographics Preferred Language Czech Marital Status Unknown Muslim Affiliation Unknown Race Unknown Ethnic Group Unknown Author Author , FINESSE BREEN Address Unknown Phone Immunization Unable to retrieve immunization data due to connection failure with Immunization Registry. Please try again later.
--- OUTSIDE RECORDS SUMMARY | 2017-05-30 17:53 | External Medical Summary Rpt | CCD ---
Demographics Preferred Language Citizen Of [place] Marital Status Unknown Oriental Orthodox Affiliation Unknown Race Unknown Ethnic Group Unknown Author Author , FINESSE BREEN Address Unknown Phone Immunization Unable to retrieve immunization data due to connection failure with Immunization Registry. Please try again later.
--- OUTSIDE RECORDS SUMMARY | 2017-05-30 17:53 | External Medical Summary Rpt ---
Author Author JAMSHID Trinidad, ROSIEPATO [employer] Address Unknown Phone Unavailable Results Hemoglobin.gastrointestinal [Presence] in Stool Observa Value Referen Units Interpr Notes Date tion ce etation Range Hemoglo POSITIV NEG No No No May 30 bin.gas E informa informa informa 2017 trointe tion in tion in tion in 4:20 PM stinal source source source [Presen data data data ce] in Stool --1st specime n Cardiac enzymes Observa Value Referen Units Interpr Notes Date tion ce etation Range Creatine 0 - 4.0 U/L Normal No May 30 kinase.MB informati 2017 3:25 /Creatine on in PM source kinase.to data efrain [Ratio] in Serum or Plasma Creatine 0.0 - 3.6 ng/mL Normal No May 30 kinase.MB informati 2017 3:25 on in PM [Mass/vol source ume] in data Serum or Plasma Creatine 39 - 308 U/L Normal No May 30 kinase informati 2017 3:25 [Enzymati on in PM c source activity/ data volume] in Serum or Plasma Troponin 0.00 - ng/mL Normal No May 30 I.cardiac 0.06 informati 2017 3:25 on in PM [Mass/vol source ume] in data Serum or Plasma Comprehensive metabolic 2000 panel in Serum or Plasma Observa Value Referen Units Interpr Notes Date tion ce etation Range Albumin/G 1.1 - 1.8 No Normal No May 30 lobulin informati informati 2017 3:25 [Mass on in on in PM ratio] in source source Serum or data data Plasma Albumin 3.4 - 5.0 gm/dL Normal No May 30 [Mass/vol informati 2017 3:25 ume] in on in PM Serum or source Plasma data Alkaline 46 - 116 U/L Normal No May 30 phosphata informati 2017 3:25 se on in PM [Enzymati source c data activity/ volume] in Serum or Plasma Bilirubin 0.2 - 1.0 mg/dL Normal No May 30 .total informati 2016 3:25 [Mass/vol on in PM ume] in source Serum or data Plasma Urea 7 - 18 mg/dL High No May 30 nitrogen informati 2016 3:25 [Mass/vol on in PM ume] in source Serum or data Plasma Calcium 8.5 - mg/dL Normal May 30 [Mass/vol 10.1 informati 2016 3:25 ume] in on in PM Serum or source Plasma data Chloride 98 - 107 mmoL/L Normal May 30 [Moles/vo informati 2016 3:25 lume] in on in PM Serum or source Plasma data Carbon 21.0 - mmoL/L Normal May 30 dioxide, 32.0 informati 2017 3:25 total on in PM [Moles/vo source lume] in data Serum or Plasma Creatinin 0.70 - mg/dL High No May 30 e 1.30 informati 2016 3:25 [Mass/vol on in PM ume] in source Serum or data Plasma Creatinin 50 - 200 ML/MIN Low No May 30 e renal informati 2016 3:25 clearance on in PM source predicted data by Cockcroft -Gault formula Estimated >60 ML/MIN No REFERENCE May 30 informati RANGE: 2017 3:25 glomerula on in >60 PM r source ML/MIN/1. filtratio data 73 SQUARE n rate METERSIf (GF this patient is -A merican, then multiply theresult by 1.210. Globulin 1.3 - 3.2 gm/dL Normal May 30 [Mass/vol informati 2016 3:25 ume] in on in PM Serum source data Glucose 74 - 106 mg/dL High May 30 [Mass/vol informati 2016 3:25 ume] in on in PM Serum or source Plasma data Potassium 3.5 - 5.1 mmoL/L Normal May 30 informati 2016 3:25 [Moles/vo on in PM lume] in source Serum or data Plasma Sodium 136 - 145 mmoL/L Normal May 30 [Moles/vo informati 2017 3:25 lume] in on in PM Serum or source Plasma data Aspartate 15 - 37 U/L Low No May 30 informati 2017 3:25 aminotran on in PM sferase source [Enzymati data c activity/ volume] in Serum or Plasma Alanine 12 - 78 U/L Normal May 30 aminotran informati 2017 3:25 sferase on in PM [Enzymati source c data activity/ volume] in Serum or Plasma Protein 6.4 - 8.2 gm/dL Normal No May 30 [Mass/vol inform2016 3:25 ume] in on in PM Serum or source Plasma data CBC W Auto Differential panel in Blood Observa Value Referen Units Interpr Notes Date tion ce etation Range Basophils 0 - 0.2 K/MM3 Normal No May 30 inform2016 3:25 [#/volume on in PM ] in source Blood by data Automated count Basophils 0.1 - 2.0 % Normal No May 7 /100 informati 2017 3:25 leukocyte on in PM s in source Blood by data Automated count Eosinophi 0.0 - 0.4 K/mm3 Normal No May 30 ls informati 2016 3:25 [#/volume on in PM ] in source Blood by data Automated count Eosinophi 0.1 - % Normal No May 30 ls/100 12.0 informati 2016 3:25 leukocyte on in PM s in source Blood by data Automated count Granulocy 1.3 - 8.0 K/mm3 High No May 30 mohini informati 2016 3:25 [#/volume on in PM ] in source Blood by data Automated count Granulocy 37.0 - % High No May 30 mohini/100 80.0 informati 2016 3:25 leukocyte on in PM s in source Blood by data Automated count Hematocri 42.0 - % Low No May 30 t [Volume 52.0 2016 3:25 on in PM Fraction] source of Blood data Hemoglobi 14.1 - g/dL Low No May 30 n 18.0 informati 2016 3:25 [Mass/vol on in PM ume] in source Blood data Lymphocyt 0.7 - 4.5 K/mm3 Normal No May 30 es informati 2016 3:25 [#/volume on in PM ] in source Unspecifi data ed specimen by Automated count Lymphocyt 10 - 50 % Normal May 30 es 2016 3:25 [#/volume on in PM ] in source Unspecifi data ed specimen by Automated count Erythrocy 27 - 31.2 pg High No May 30 te mean ati 2016 3:25 corpuscul on in PM ar source hemoglobi data n [Entitic mass] Erythrocy 31.8 - g/dl Normal No May 30 te mean 35.4 2016 3:25 corpuscul on in PM ar source hemoglobi data n concentra tion [Mass/vol ume] by Automated count Erythrocy 82.2 - fl Normal No May 30 te mean 97.8 2016 3:25 corpuscul on in PM ar volume source [Entitic data volume] by Automated count Monocytes 0.1 - 1.0 K/mm3 Normal No May 302016 3:25 [#/volume on in PM ] in source Blood by data Automated count Monocytes 1.7 - 9.3 % Normal No May 30 /100 inform2016 3:25 leukocyte on in PM s in source Blood by data Automated count Platelet 7.4 - fl Normal May 30 mean 10.4 informati 2016 3:25 volume on in PM [Entitic source volume] data in Blood by Automated count Platelets 142 - 424 K/mm3 Normal No May 7 2016 3:25 [#/volume on in PM ] in source Blood data Erythrocy 4.6 - 6.2 M/mm3 Low No May 30 mohini informati 2016 3:25 [#/volume on in PM ] in source Amniotic data fluid Erythrocy 11.5 - % Normal May 30 te 17.5 informati 2016 3:25 distribut on in PM ion width source [Entitic data volume] by Automated count Leukocyte 4.8 - K/MM3 Normal No May 30 s 10.8 2016 3:25 [#/volume on in PM ] in source Blood data Basic metabolic panel in Blood Observa Value Referen Units Interpr Notes Date tion ce etation Range Urea 7 - 18 mg/dL High No Sep 14 nitrogen informati 2016 [Mass/vol on in 11:11 AM ume] in source Serum or data Plasma Calcium 8.5 - mg/dL Normal No Sep 14 [Mass/vol 10.1 informati 2016 ume] in on in 11:11 AM Serum or source Plasma data Chloride 98 - 107 mmoL/L Normal No Sep 14 [Moles/vo informati 2017 lume] in on in 11:11 AM Serum or source Plasma data Carbon 21.0 - mmoL/L Normal No Sep 14 dioxide, 32.0 informati 2016 total on in 11:11 AM [Moles/vo source [...]
[2017-05-30 21:25] LABS: HEMOGLOBIN 7.5 g/dL (14.1-18.0)
[2017-05-30 21:35] LABS: ABO BLOOD TYPE O
[2017-05-30 21:48] LABS: ANTIHUMAN GLOB CROSSMATCH COMPAT; RH BLOOD TYPE POSITIVE
[2017-05-31] VITALS (24 sets, daily range): BP systolic 100–158; BP diastolic 56–87
[2017-05-31 03:33] LABS: HEMOGLOBIN 9.5 g/dL (14.1-18.0)
--- NOTE | 2017-05-31 07:02 | CONSULT NOTE ---
Standard Demographics Patient Demo Date of Consultation: 05/31/17 Referring Provider: Jacky Zelaya MD Reason for Consultation: upper gastrointestinal hemorrhage PRIMARY DIAGNOSIS: UPPER GI BLEED Allergies: Coded Allergies: No Known Allergies (05/30/17) History of Present Illness Chief Complaint: Black stool and anemia History of Present Illness: This is a 76-year-old gentleman seen in consultation from Dr. Zelaya for evaluation of upper gastrointestinal hemorrhage. He presented overnight to the emergency department with a three-day history of "black stools". No loss of consciousness or change in mental status. No hematemesis. He did feel "a bit weak". Initial hemoglobin over 9 upon evaluation in the emergency department. He was placed on Protonix and admitted for further evaluation and management. He states he "feels fine right now". Initial hemoglobin 9.3. Repeat hemoglobin 7.5 for which he received 2 units of packed red blood cells. Posttransfusion hemoglobin 9.5. Past Medical History Reports: hypertension, diabetes mellitus. Denies: CAD, COPD. Surgical History Previous Surgery?Y LEFT KNEE The patient states that he had "an upper and a lower scope at least 6 or so years ago". Allergies Coded Allergies: No Known Allergies (05/30/17) Medications: Active Scripts Furosemide (Lasix) 40 MG PO DAILY #30 TAB Prov: 08/25/12 Reported Medications Glimepiride 1 MG PO DAILY #90 ASPIRIN (Aspirin) 81 MG PO DAILY Metformin HCl (Metformin) 500 MG PO BID Carvedilol (Carvedilol 6.25MG) 6.25 MG PO BID Gabapentin (Gabapentin 600MG) 600 MG PO BID Family history Postive for: HTN. Smoking Hx Tobacco: No Smoker: Former Smoker Type: Cigarettes Packs/day: N/A Are you/the child exposed to second-hand smoke: No Alcohol Alcohol: No Hx of Drug Use Drug Use? No Review of Systems Constitutional No: recent weight loss. Skin No: bruising. Immune/allergy No: anaphalaxis. ENT No: nose bleed. Respiratory No: dyspnea on exertion. Cardiovascular No: palpitations. GI Positive for: melena, nausea. No: hematemeis, hematochezia, vomitting. (male) No: hematuria. Heme No: petechia. Endocrine No: polydipsia. Neurological No: change in LOC. Psychiatric No: anxious. Physical Exam VS/I&O Vital Signs Date Time Temp Pulse Resp B/P Pulse O2 O2 Flow FiO2 Ox Delivery Rate 05/31 0600 76 129/74 99 ROOM AIR 05/31 0400 98.4 83 17 128/63 94 05/31 0315 98.5 82 16 129/71 05/31 0215 98.3 87 17 103/56 05/31 0135 98.5 87 17 113/69 05/31 0120 98.4 85 16 123/56 05/31 0105 98.4 86 17 100/58 05/31 0050 98.6 89 17 124/64 05/31 0045 98.4 85 17 132/65 05/31 0040 98.3 89 18 129/73 05/31 0035 98.3 88 17 127/71 05/31 0015 97.7 86 18 120/69 05/30 2320 98.1 86 17 125/61 05/30 2305 98.1 86 17 113/62 05/30 2250 98.1 90 16 123/60 05/30 2235 98.0 90 17 120/61 05/30 2235 98.0 90 17 120/61 97 ROOM AIR 05/30 2230 98.0 93 16 98/68 05/30 2225 98.1 94 16 108/74 05/30 2220 98.0 90 16 113/62 05/30 2200 97.8 91 17 121/66 98 ROOM AIR 05/30 2000 98.1 87 17 126/69 100 05/30 1852 98.1 89 20 122/76 95 ROOM AIR 05/30 1851 95 05/30 1851 98.1 89 20 122/76 05/30 1851 98 ROOM AIR 05/30 1848 98.1 95 18 128/79 98 05/30 1528 98.1 95 18 128/79 98 I&O 05/31 0700 Intake Total 760 Output Total Balance 760 Intake, IV 760 Patient 76.799 kg Weight Exam General appearance no acute distress, alert, oriented Respiratory no distress Cardiovascular regular rate and rhythm Abdomen soft Plan Plan: Impression: Melena Anemia Plan: Continue Protonix Esophagogastroduodenoscopy-I have discussed the risks and benefits and he agrees to proceed at [phone]
--- NOTE | 2017-05-31 07:37 | PHARMACY CLINIC NOTE ---
Patient Demographics Patient Demographics Admission date: 05/30/17 Date: 05/31/17 Time: 0736 Allergies Coded Allergies: No Known Allergies (05/30/17) HEIGHT- FT: 6 IN: 2.00 K.799 VTE General Information Labs: Laboratory Tests 05/31 2102 1525 Hematology Hgb (14.1 - 18.0 g/dL) 9.5 L 7.5 *L 9.3 L Hct (42.0 - 52.0 %) 27.8 L 22.2 *L 27.6 L Plt Count (142 - 424 K/mm3) 208 Disclaimer The following section includes nursing documentation that has been pulled in for pharmacy review. Patient's VTE score: 1 Patient's VTE Risk: VERY LOW RISK Clinical trial participant? No VTE prophylaxis [id number] VTE prophylaxis ordered? Yes Type of prophylaxis/treatment: GILBERT at 0736
--- NOTE | 2017-05-31 08:25 | Operative Note ---
Surgeon/Diagnoses Surgeon/Production Floater(s) Date of procedure: 05/31/17 Surgeon: MD Kellee Chapin Diagnoses Pre-op diagnosis: Upper gastrointestinal hemorrhage Post-op diagnosis Same as preoperative diagnoses, with the addition of following: Gastritis Distal esophagitis Early Schatzki ring Peptic ulcer disease with shallow ulcerations in the antrum, pyloric channel, and duodenal bulb Procedure Procedure Procedure: Esophagogastroduodenoscopy with biopsy Indications: JAEL LEVINE is a 76 year-old Male with a history of melena and anemia. Findings: Gastroesophageal junction 45 cm Early Schatzki ring Lobular inflammation at gastroesophageal junction Shallow ulcerations of the antrum, pyloric channel, and duodenal bulb No active bleeding or sign of "old blood" within esophagus, stomach, or duodenum Procedure Description: After informed consent was obtained, the patient was taken to the endoscopy suite. Monitored anesthesia care ensued after he was transferred to the LEFT lateral decubitus position. The gastroscope was advanced. The gastroesophageal junction was at 45 cm. An early Schatzki ring and lobular inflammation was noted. Biopsies were obtained at the time of gastroscope removal. The stomach was entered. Shallow ulcerations of the antrum, pyloric channel, and duodenal bulb were noted as the endoscope was advanced. No "old blood" was seen. No sign of active or recent hemorrhage was noted. No clot at the base or exposed vessels were seen. Antral biopsies were obtained. The gastroscope was carefully removed and the patient was transferred to recovery. EBL (ml): 1 Anesthesia: Monitored anesthesia care Complications: No immediate Specimens: Antral biopsies Gastroesophageal junction biopsy Disposition Disposition: Stable to recovery from where he will be transferred back to the floor. at [phone]
[2017-05-31] MEDS ORDERED: METFORMIN 500M500 MG PO (09:47)
[2017-05-31] MEDS ORDERED: LASIX 20MG. TAB20 MG PO (09:47)
--- NOTE | 2017-05-31 09:51 | HISTORY AND PHYSICAL REPORT ---
History and Physical ([facility]) Date of admission: 05/30/17 Chief complaint: blood in stool and abdominal pain History: History of Present Illness: Mr. Abdi is a 76-year-old gentleman who presented overnight to the emergency department with a three-day history of "black stools". No loss of consciousness or change in mental status. No hematemesis. He did feel "a bit weak" and had diffuse abdominal pain. Initial hemoglobin was 9.3 upon evaluation in the emergency department. He was placed on Protonix and admitted for further evaluation and management. Surgery was consulted. A repeat hemoglobin was 7.5 for which he received 2 units of packed red blood cells. His posttransfusion hemoglobin was 9.5. He was seen by Dr. Argueta who took him for an EGD. He found ulcers in the stomach but none were actively bleeding. He will remain in the hospital for monitoring of his H&H. Past Medical History: Medical History: CAD? No Angina: Yes DE: No Hypertension? Yes Hyperlipidemia? No CHF? Yes DVT? No PE? No COPD? No Asthma? No Anemia? No GERD? Yes Gastric ulcers? No GI Bleed? No Hernia? No Thyroid Problems? No Hypothyroidism? No CVA? No Seizures? No Diabetes? Yes Insulin Dependent: No Insulin Pump: No Home FSBS? No Renal Insuffiency? No UTI? No Stones? No BPH? No GB Disease: No Nephritic Syndrome? No Asplenia? No Hepatitis? No Sickle Cell Disease? No Arthritis? No Migraines? No Cataracts? No Glaucoma? No MRSA? No HIV? No TB? No Anxiety? No Depression? No Cancer? No More? No Surgical history: Previous Surgery?Y 1. LEFT KNEE 2. BASAL CELL CANCER REMOVED FROM NOSE 3. HEART CATH 4. EGD 5. C-SCOPE X 2 6. CATARACTS Medications: Reported Medications Gabapentin (Gabapentin 600MG) 1,200 MG PO BID METFORMIN HCL (Metformin 500MG) 2,000 MG PO DAILY Furosemide (Lasix 20MG) 20 MG PO DAILY Glimepiride 1 MG PO DAILY #90 ASPIRIN (Aspirin) 81 MG PO DAILY Carvedilol (Carvedilol 6.25MG) 6.25 MG PO BID Allergies: Coded Allergies: No Known Allergies (05/30/17) Family History: Family history: Postive for: CAD, DM, HTN, hyperlipidemia. Negative for: cancer, stroke. Social History: Smoking Hx Tobacco: No Smoker: Former Smoker Type: Cigarettes Packs/day: N/A Are you exposed to second hand No Alcohol: Alcohol: No Hx of Drug Use: Drug Use? No Review of Systems: Constitutional Positive for: fatigue, weak. No: lethargy, malaise. ENT No: nasal congestion, sore throat. Cardiovascular No: chest pain, edema, palpitations. Respiratory No: shortness of air, productive cough (sputum), wheezing. GI Positive for: abdominal pain, melena. No: diarrhea, hematemeis, hematochezia, nausea, vomitting. (male) No: frequency, hematuria. Neurological Positive for: weakness. No: dizziness, headache, syncope. Musculoskeletal No: extremity pain, joint pain, myalgias. Physical Exam: Vital signs: 1ST Vital Signs Result Date Time Pulse Ox 98 05/30 1528 B/P 128/79 05/30 1528 Temp 98.1 05/30 152 Pulse 95 05/30 1528 Resp 18 05/30 1528 O2 Delivery ROOM AIR 05/30 1851 Exam: General appearance: alert, awake, no acute distress Eyes: EOM's w/normal ROM, PERRLA ENT: mucous membranes moist, nose normal, pharynx normal, tympanic membranes normal Neck: non-tender, no carotid bruit, full range of motion, supple Cardiovascular: regular rate & rhythm Respiratory: clear to auscultation ABD: non-distended, normal bowel sounds, no rebound, soft, no tenderness, no guarding Extremities: no peripheral edema Musculoskeletal: equal muscle strength, motor intact, sensation intact Skin: normal color Neuro: normal mood/affect, oriented, speech clear Lab data: Labs: Laboratory Tests 05/31/17 0619: POC Glucose 135 H 05/31/17 0315: Hgb 9.5 L, Hct 27.8 L 05/30/17 2231: Misc Test Units BLOOD UNIT RELEASE 05/30/17 2102: Hgb 7.5 *L, Hct 22.2 *L 05/30/17 2014: POC Glucose 224 H 05/30/17 1830: Antibody Screen NEGATIVE, Miscellaneous Test POSITIVE 05/30/17 1620: Stool Occult Blood POSITIVE 05/30/17 1525: Sodium 136, Potassium 5.1, Chloride 101, Carbon Dioxide 24, BUN 72 H, Creatinine 2.4 H, Estimated Creat Clear 30 L, Estimated GFR (MDRD) 27, Glucose 202 H, Calcium 8.6, Total Bilirubin 0.3, AST 13 L, ALT 16, Alkaline Phosphatase 63, Creatine Kinase 64, CK-MB (CK-2) Rel Index 2.0, CK and CKMB Interp 1.3, Troponin I 0.02, Total Protein 6.4, Albumin 3.6, Globulin 2.8, Albumin/Globulin Ratio 1.3, WBC 10.4, RBC 2.86 L, Hgb 9.3 L, Hct 27.6 L, MCV 96.3, RDW 12.5, Plt Count 208, MPV 10.3, Gran % 81.8 H, Gran # 8.5 H, Lymphocytes % 15.3, Monocytes % 2.3, Eosinophils % 0.3, Basophils % 0.1, Lymphocytes # 1.6, Monocytes # 0.2, Eosinophils # 0.0, Basophils # 0.0, PUBS MCHC 34.0, MCH 32.7 H Diagnosis(es): 1. Peptic ulcer disease 2. Upper gastrointestinal bleed 3. Blood loss anemia 4. Essential hypertension Status: Chronic 5. Diabetes mellitus type 2 Status: Chronic Plan: Pt has been started on carafate and PPI's. He will be monitored and surgery will follow. (Gabi Mock) Diagnosis(es): 1. Peptic ulcer disease 2. Upper gastrointestinal bleed 3. Blood loss anemia 4. Essential hypertension Status: Chronic 5. Diabetes mellitus type 2 Status: Chronic 6. History of CHF (congestive heart failure) Plan: Patient seen and agree with above note. (Jacky Zelaya MD) at [phone] at [phone]
[2017-06-01 00:18] VITALS: BP 138/73
[2017-06-01 04:28] VITALS: BP 136/73
[2017-06-01 05:38] LABS: HEMOGLOBIN 9.7 g/dL (14.1-18.0); LYMPH # 1.8 K/mm3 (0.7-4.5); LYMPH % 30.4 % (10-50)
--- NOTE | 2017-06-01 07:13 | SURGEON PROGRESS NOTE ---
Subjective data Subjective data: The patient is very upset secondary to the fact that he has not received gabapentin or carvedilol. He is also extremely upset with his clear liquid diet. I explained the reasoning with regard to the clear liquid diet and he states that he "understands". Objective data Vitals,I&O,and Labs: Vital signs, intake and output,and available lab data for the last 24 hours is as noted below. Vital Signs Date Time Temp Pulse Resp B/P Pulse O2 O2 Flow FiO2 Ox Delivery Rate 06/01 0428 97.9 75 16 136/73 96 ROOM AIR 06/01 0018 98.0 81 18 138/73 95 ROOM AIR 05/31 1945 98.1 83 16 129/76 97 05/31 1945 98.1 83 16 129/76 97 ROOM AIR 05/31 1627 98.4 77 18 127/68 97 ROOM AIR 05/31 1300 98.1 76 20 127/69 100 05/31 1200 98.0 80 20 135/73 97 05/31 1100 98.0 80 16 138/76 98 05/31 1030 97.8 79 20 140/71 99 05/31 1000 97.8 78 20 152/78 94 05/31 0945 97.8 77 20 152/77 99 05/31 0935 98.1 84 16 121/60 99 05/31 0930 97.8 72 20 154/78 100 05/31 0915 97.8 78 20 150/84 100 05/31 0901 82 16 114/57 05/31 0900 98.1 70 20 158/87 96 05/31 0826 98.1 84 16 121/60 99 ROOM AIR 05/31 0806 99 05/31 1500 05/31 2300 06/01 07 Intake Total 800 360 10 Output Total Balance 800 360 10 Intake, IV 10 Intake, Oral 800 360 Patient 76.8 kg 76.8 kg Weight Laboratory Tests Test Result Date Time Chemistry Sodium (mmoL/L) 137 06/01 05 Potassium (mmoL/L) 4.0 06/01 05 Chloride (mmoL/L) 102 06/01 05 Carbon Dioxide (mmoL/L) 28 06/01 05 BUN (mg/dL) 43 06/01 05 Creatinine (mg/dL) 2.4 06/01 05 Estimated Creat Clear (ML/MIN) 29 06/01 0525 Estimated GFR (MDRD) (ML/MIN) 27 06/01 525 Glucose (mg/dL) 138 06/01 525 POC Glucose (mg/dl) 214 05/31 162 Calcium (mg/dL) 8.5 06/01 525 Total Bilirubin (mg/dL) 0.3 05/30 152 AST (U/L) 13 05/30 152 ALT (U/L) 16 05/30 1525 Alkaline Phosphatase (U/L) 63 05/30 152 Creatine Kinase (U/L) 64 05/30 152 CK-MB (CK-2) Rel Index (U/L) 2.0 05/30 152 CK and CKMB Interp (ng/mL) 1.3 05/30 152 Troponin I (ng/mL) 0.02 05/30 152 Total Protein (gm/dL) 6.4 05/30 152 Albumin (gm/dL) 3.6 05/30 152 Globulin (gm/dL) 2.8 05/30 1525 Albumin/Globulin Ratio 1.3 05/30 152 Hematology WBC (K/MM3) 5.8 06/01 525 RBC (M/mm3) 3.13 06/01 525 Hgb (g/dL) 9.7 06/01 525 Hct (%) 29.4 06/01 525 MCV (fl) 94.0 06/01 525 RDW (%) 13.1 06/01 525 Plt Count (K/mm3) 135 06/01 525 MPV (fl) 9.9 06/01 525 Gran % (%) 63.1 06/01 525 Gran # (K/mm3) 3.7 06/01 525 Lymphocytes % (%) 30.4 06/01 525 Monocytes % (%) 5.1 06/01 525 Eosinophils % (%) 1.1 06/01 525 Basophils % (%) 0.3 06/01 525 Lymphocytes # (K/mm3) 1.8 06/01 525 Monocytes # (K/mm3) 0.3 06/01 525 Eosinophils # (K/mm3) 0.1 06/01 525 Basophils # (K/MM3) 0.0 06/01 525 PUBS MCHC (g/dl) 33.1 06/01 525 Immunology Antibody Screen NEGATIVE 11/07 1830 MCH (pg) 31.1 06/01 0525 Miscellaneous Miscellaneous Test POSITIVE 05/30 1830 Misc Test Units BLOOD UNIT RELEASE 05/30 2231 Other Body Source Stool Occult Blood POSITIVE 05/30 1620 Assessment findings Assessment Exam General appearance: no acute distress Cardiovascular: regular rate & rhythm Respiratory: no respiratory distress Patient plan Diagnoses: UGI bleed secondary to PUD -- stable with no sign of ongoing blood loss Plan: Advance diet Additional data: continue PPI and Carafate repeat EGD in ~6 weeks full liquids for at least a few more days at 0713
[2017-06-01 07:54] VITALS: BP 151/68
--- NOTE | 2017-06-01 08:22 | ACUTE CARE PROGRESS NOTE (QUA) ---
Progress Notes Subjective Date 06/01/17 Time 0820 Note Patient states he is going home today. He states he no longer wants to eat clear liquids and full liquids, he wanted some "real food". He denies any pain. He states he has not had any vomiting. He has had no more stools since admission. Objective Findings Last VS-Temp:98.4 B/P:151/68 Pulse:80 Resp:16 SaO2:98 ROOM AIR Last weight lbs:168 oz:3 K.289 Method:Bed Scales Laboratory Tests 06/01/17 0525: Sodium 137, Potassium 4.0, Chloride 102, Carbon Dioxide 28, BUN 43 H, Creatinine 2.4 H, Estimated Creat Clear 29 L, Estimated GFR (MDRD) 27, Glucose 138 H, Calcium 8.5, WBC 5.8, RBC 3.13 L, Hgb 9.7 L, Hct 29.4 L, MCV 94.0, RDW 13.1, Plt Count 135 L, MPV 9.9, Gran % 63.1, Gran # 3.7, Lymphocytes % 30.4 , Monocytes % 5.1, Eosinophils % 1.1, Basophils % 0.3, Lymphocytes # 1.8, Monocytes # 0.3, Eosinophils # 0.1, Basophils # 0.0, PUBS MCHC 33.1, MCH 31.1 05/31/17 1625: POC Glucose 214 H 05/31/17 1145: POC Glucose 241 H 05/31/17 1125: Hgb 10.0 L, Hct 28.6 L Exam General appearance: alert, awake, no acute distress Cardiovascular: regular rate & rhythm Respiratory: clear to auscultation ABD: non-distended, normal bowel sounds, no rebound, soft, no tenderness, no guarding Extremities: no peripheral edema Assessment/Plan Problem List 1. Peptic ulcer disease 2. Upper gastrointestinal bleed 3. Blood loss anemia 4. Essential hypertension Status: Chronic 5. Diabetes mellitus type 2 Status: Chronic 6. History of CHF (congestive heart failure) Plan: Will discuss disposition with Dr. Zelaya today. Possible discharge home on normal home meds, carafate, PPI, and will repeat EGD in 6 weeks. This inpt stay is expected to cross 2 MNs from start of care No (Gabi Mock) Assessment/Plan Problem List 1. Peptic ulcer disease 2. Upper gastrointestinal bleed 3. Blood loss anemia 4. Essential hypertension Status: Chronic 5. Diabetes mellitus type 2 Status: Chronic 6. History of CHF (congestive heart failure) Comments: Patient seen and agree with above note. He is demanding to be discharged today. Discussed importance of adhering to medical advise and need for f/u evaluation and testing. (Jacky Zelaya MD) at 0822 at 0811
[2017-06-01] MEDS ORDERED: CARAFATE 11 GM/10 ML PO (08:53)
[2017-06-01] MEDS ORDERED: PROTONIX40 MG PO (08:53)
[2017-06-01 10:00] VITALS: BP 151/68
--- NOTE | 2017-06-06 16:33 | DISCHARGE SUMMARY STANDARD ---
Discharge Summary ([facility]2) Date of admission: 05/30/17 Date of discharge: 06/01/17 Problem List: 1. Peptic ulcer disease 2. Upper gastrointestinal bleed 3. Blood loss anemia 4. Essential hypertension 5. Diabetes mellitus type 2 6. History of CHF (congestive heart failure) History of present illness: Mr. Abdi is a 76-year-old gentleman who presented overnight to the emergency department with a three-day history of "black stools". No loss of consciousness or change in mental status. No hematemesis. He did feel "a bit weak" and had diffuse abdominal pain. Initial hemoglobin was 9.3 upon evaluation in the emergency department. He was placed on Protonix and admitted for further evaluation and management. Surgery was consulted. A repeat hemoglobin was 7.5 for which he received 2 units of packed red blood cells. His posttransfusion hemoglobin was 9.5. He was seen by Dr. Argueta who took him for an EGD. He found ulcers in the stomach but none were actively bleeding. Exam on admission: General appearance: alert, awake, no acute distress Eyes: EOM's w/normal ROM, PERRLA ENT: mucous membranes moist, nose normal, pharynx normal, tympanic membranes normal Neck: non-tender, no carotid bruit, full range of motion, supple Cardiovascular: regular rate & rhythm Respiratory: clear to auscultation ABD: non-distended, normal bowel sounds, no rebound, soft, no tenderness, no guarding Extremities: no peripheral edema Musculoskeletal: equal muscle strength, motor intact, sensation intact Skin: normal color Neuro: normal mood/affect, oriented, speech clear Hospital Course: He was continued on protonix and started on carafate. He was monitored overnight to make sure his H&H was stable. The patient was adament the next day that he was going home. He wanted to eat something other than clear liquids. Dr. Zelaya discussed the importance of adhering to medical advice and diet and the need for f/u evaluation and testing. He was discharged on a PPI and carafate and will need a repeat EGD in 6 weeks. Discharge medications: Continue taking these medications: Carvedilol (Carvedilol 6.25MG) 6.25 MG TABLET 6.25 MILLIGRAM ORAL TWICE A DAY Gabapentin (Gabapentin 600MG) 600 MG TABLET 1,200 MILLIGRAM ORAL TWICE A DAY Glimepiride (Glimepiride) 1 MG TABLET 1 MILLIGRAM ORAL DAILY Qty = 90 ASPIRIN (Aspirin) 81 MG TAB.CHEW 81 MILLIGRAM ORAL DAILY METFORMIN HCL (Metformin 500MG) 500 MG TABLET 2,000 MILLIGRAM ORAL DAILY Furosemide (Lasix 20MG) 20 MG TABLET 20 MILLIGRAM ORAL DAILY Start taking the following new medications: Pantoprazole Sodium (Protonix) 40 MG TABLET.DR 40 MILLIGRAM ORAL TWICE A DAY Qty = 60 No Refills Sucralfate (Carafate Oral Susp (Disp 30 day supply)) 1 GM/10 ML ORAL.SUSP 1 GRAM ORAL BEFORE MEALS AND AT BEDTIME Qty = 1200 No Refills Disposition: F/U with: DARI SARAVIA,REILLY Toure Follow up: 7 DAYS Activity: Cont Current activity Diet: Continue same diet Discharge to: HOME Agency needed? N at [phone]
== END 2017-06-01 09:55 | disposition home or self-care (01) | DRG 379 ==
LOC: ER 15:14 → 2ND 17:47
PROVIDERS: Emergency Medicine; Family Medicine; Surgery
PROC: 0DB48ZX Excision of Esophagogastric Junction, Via Natural or Artificial Opening Endoscopic, Diagnostic (ICD-10-PCS; principal; 2017-05-31 07:33)
PROC: 0DB78ZX Excision of Stomach, Pylorus, Via Natural or Artificial Opening Endoscopic, Diagnostic (ICD-10-PCS; principal; 2017-05-31 07:33)
PROC: 30233N1 Transfusion of Nonautologous Red Blood Cells into Peripheral Vein, Percutaneous Approach (ICD-10-PCS; principal; 2017-05-31 07:33)
DX: K25.4 Chronic or unspecified gastric ulcer with hemorrhage (principal); I50.9 Heart failure, unspecified; D50.0 Iron deficiency anemia secondary to blood loss (chronic); K92.2 Gastrointestinal hemorrhage, unspecified; E11.9 Type 2 diabetes mellitus without complications
CPT/HCPCS: G0328; P9016